=== PATIENT | female | born 1985 | race African-American/Black ===

== ENCOUNTER 2016-07-26 19:03 | Emergency (ER) | payer OTHER ==
[~2016-07-26] VITALS: Ht 162.6 cm; Wt 59.0 kg
[~2016-07-26 19:03] MED LIST: EXJA500T PO; FOLI1 PO; HYDR500 PO; METH10TA PO; METO25 PO; PERC10TA27 PO; RIVA20 PO; ZOFR4TAB3 PO; [UNRECOGNIZED DRUG - CODE] PO
[2016-07-26] MEDS ORDERED: APIX5TAB PO (19:25)
[2016-07-26] MEDS ORDERED: SODIUM CHLOR 0.9% 1000 ML INJ 1,000 ML IV ONE (19:26)
--- NOTE | 2016-07-26 19:29 | PD ---
HPI Chief Complaint: Sickle Cell Time Seen by Provider: 19:20 Travel History International Travel<30 days: No Contact w/Intl Traveler<30days: No Traveled to known affect area: No History of Present Illness HPI This is a 30-year-old female who reports a history of sickle cell anemia, atrial fibrillation on xarelto who presents for evaluation of lower back pain and bilateral thigh pain. Symptoms started last night. This is typical sickle cell pain according to the patient. She has these sorts of sickle cell pain exacerbations about twice a month. It is an aching pain. She typically takes Percocet and methadone at home but symptoms persisted which prompted evaluation. She denies any current illness. She denies any cough, congestion, chest pain or shortness of breath, abdominal pain, nausea or vomiting, fevers or chills, dysuria, flank pain. She does note that 2 weeks ago she was admitted in the hospital in [place] for pneumonia and she was discharged with Levaquin which she finished one week ago. The pneumonia symptoms have been resolved. She reports that she is currently on vacation visiting her aunt who lives in the area, she is from [place] and plans on returning home in 2 days. No other complaints. PFSH Past Medical History Hx Anticoagulant Therapy: Yes (ELIQUIS) Asthma: Yes Atrial Fibrillation: Yes Cardiovascular Problems: Yes (AFIB) Diminished Hearing: No Respiratory: Yes (PE/ASTHMA) Sickle Cell Disease: Yes ?: Not : 1 Para: 1 Tubal Ligation: Yes Past Surgical History Cholecystectomy: Yes Thoracic Surgery: Yes (PORT REMOVED X4, double port placed left chest) Social History Alcohol Use: Yes (OCC) Tobacco Use: No Substance Use: No Allergies-Medications (Allergen,Severity, Reaction): Coded Allergies: Morphine (Verified Allergy, Severe, Hives, 07/26/16) Latex (Verified Allergy, Mild, RASH, 07/26/16) Penicillin (Verified Allergy, Mild, ITCH, 07/26/16) Uncoded Allergies: damian (Allergy, Severe, Rash, 12/09/15) Reported Meds & Prescriptions Reported Meds & Active Scripts Active Zofran ODT (Ondansetron HCl) 4 Mg Tab 4 Mg PO Q6 PRN Reported Eliquis (Apixaban) 5 Mg Tab 5 Mg PO BID Exjade (Deferasirox) 500 Mg Tab 1,500 Mg PO DAILY Metoprolol Tartrate 25 mg (Metoprolol Tartrate) 25 Mg Tab 25 Mg PO BID Methadone HCl (Methadone Hcl) 10 Mg Tab 10 Mg PO BID Percocet 10-325 mg (Oxycodone-Acetaminophen 10-325 mg) 1 Tab 1 Tab PO Q4H PRN Acid Control Maximum Stre (Ranitidine HCl) 150 Mg Tab 150 Mg PO BID Hydrea 500 Mg Cap (Hydroxyurea) 500 Mg Cap 1,500 Mg PO DAILY Folate 1 Mg Tab (Folic Acid) 1 Mg Tab 1 Mg PO DAILY Review of Systems Except as stated in HPI: all other systems reviewed are Neg Physical Exam Narrative GENERAL: Well-developed well-nourished female in no acute distress SKIN: Warm and dry. HEAD: Atraumatic. Normocephalic. EYES: Pupils equal and round. No scleral icterus. No injection or drainage. ENT: No nasal bleeding or discharge. Mucous membranes pink and moist. NECK: Trachea midline. No JVD. CARDIOVASCULAR: Regular rate and rhythm. No murmur appreciated. RESPIRATORY: No accessory muscle use. Clear to auscultation. Breath sounds equal bilaterally. GASTROINTESTINAL: Abdomen soft, non-tender, nondistended. Hepatic and splenic margins not palpable. MUSCULOSKELETAL: No obvious deformities. No edema. No CVA tenderness. NEUROLOGICAL: Awake and alert. No obvious cranial nerve deficits. Motor grossly within normal limits. Normal speech. PSYCHIATRIC: Appropriate mood and affect; insight and judgment normal. Data Data Last Documented VS Vital Signs Date Time Temp Pulse Resp B/P Pulse Ox O2 Delivery O2 Flow Rate FiO2 07/26/16 20:22 98.4 07/26/16 20:20 98 07/26/16 20:10 97 18 133/75 Room Air Orders Basic Metabolic Panel (Bmp) (07/26/16 19:26) Complete Blood Count With Diff (07/26/16 19:26) Retic Count (07/26/16 19:26) Urinalysis - C+S If Indicated (07/26/16 19:26) Ecg Monitoring (07/26/16 19:26) Iv Access Insert/Monitor (07/26/16 19:26) Oximetry (07/26/16 19:26) Ondansetron Inj (Zofran Inj) (07/26/16 19:30) Sodium Chloride 0.9% Flush (Ns Flush) (07/26/16 19:30) Sodium Chlor 0.9% 1000 Ml Inj (Ns 1000 M (07/26/16 19:26) Hydromorphone Pf Inj (Dilaudid Pf Inj) (07/26/16 19:30) Ed Urine Pregnancytest Poc (07/26/16 19:26) Diphenhydramine Inj (Benadryl Inj) (07/26/16 20:45) Labs Laboratory Tests Test 07/26/16 19:55 White Blood Count 11.7 TH/MM3 Red Blood Count 2.75 MIL/MM3 Hemoglobin 7.8 GM/DL Hematocrit 23.3 % Mean Corpuscular Volume 84.8 FL Mean Corpuscular Hemoglobin 28.3 PG Mean Corpuscular Hemoglobin 33.4 % Concent Red Cell Distribution Width 22.3 % Platelet Count 307 TH/MM3 Mean Platelet Volume 8.5 FL Neutrophils (%) (Auto) 39.0 % Lymphocytes (%) (Auto) 32.1 % Monocytes (%) (Auto) 14.4 % Eosinophils (%) (Auto) 13.6 % Basophils (%) (Auto) 0.9 % Neutrophils # (Auto) 4.5 TH/MM3 Lymphocytes # (Auto) 3.7 TH/MM3 Monocytes # (Auto) 1.7 TH/MM3 Eosinophils # (Auto) 1.6 TH/MM3 Basophils # (Auto) 0.1 TH/MM3 CBC Comment AUTO DIFF Reticulocyte Count 8.7 % Absolute Reticulocyte Count 238.6 MIL/L Urine Color YELLOW Urine Turbidity CLEAR Urine pH 6.0 Urine Specific [place] 1.011 Urine Protein NEG mg/dL Urine Glucose (UA) NEG mg/dL Urine Ketones NEG mg/dL Urine Occult Blood MOD Urine Nitrite NEG Urine Bilirubin NEG Urine Urobilinogen 4.0 MG/DL Urine Leukocyte Esterase NEG Urine RBC 38 /hpf Urine WBC LESS THAN 1 /hpf Urine Squamous Epithelial 1 /hpf Cells Microscopic Urinalysis Comment CULT NOT INDICATED Sodium Level 139 MEQ/L Potassium Level 3.5 MEQ/L Chloride Level 103 MEQ/L Carbon Dioxide Level 29.2 MEQ/L Anion Gap 7 MEQ/L Blood Urea Nitrogen 7 MG/DL Creatinine 0.71 MG/DL Estimat Glomerular Filtration 118 ML/MIN Rate Random Glucose 111 MG/DL Calcium Level 8.2 MG/DL [facility] Medical Decision Making Medical Screen Exam Complete: Yes Emergency Medical Condition: Yes Medical Record Reviewed: Yes Differential Diagnosis Sickle cell crisis, compression fracture, radiculopathy Narrative Course The patient's laboratory been reviewed. Her hemoglobin level 7.8 which is stable in comparison to previous levels. Absolute reticulocyte count 238.6. She is being given IV fluids, pain medication. The patient is stable for discharge. She has Percocet and methadone at home. 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 Follow-up with your primary care physician as needed. Return for any emergent medical conditions. Med/Other Pt SpecificInfo: No Change to Meds Disposition: 01 DISCHARGE HOME Condition: Stable Sundar De Oliveira Jul 26, 2016 19:29
[2016-07-26] MEDS ORDERED: ONDANSETRON HCL 4 MG/2 ML VIAL IVP ONE (19:30)
[2016-07-26] MEDS ORDERED: HYDROmorphone HCL PF 1 MG/ML VIAL IVS ONE (19:30)
[2016-07-26] MEDS ORDERED: SODIUM CHLORIDE 0.9% FLUSH 5 ML FLUSH IVF PRN (19:30)
[2016-07-26 20:10] VITALS: BP 133/75; PULSE 97; RESP 18; O2SAT 97
[2016-07-26 20:20] VITALS: O2SAT 98
[2016-07-26 20:22] VITALS: TEMP 98.4
[2016-07-26 20:28] LABS: BLOOD, URINE MOD (NEG); COMMENT (UR) CULT NOT INDICATED; CULTURE IF INDICATED CULT NOT INDICATED; GLUCOSE,URINE NEG (NEG); KETONE, URINE NEG (NEG); NITRITE,URINE NEG (NEG); SQUAMOUS EPITHELIAL CELL URINE 1 /hpf (0-5); URINE COLOR YELLOW (YELLW/STRAW)
[2016-07-26 20:35] LABS: AUTOMATED NEUTROPHIL # 4.5 TH/MM3 (1.8-7.7); BASOPHIL # 0.1 TH/MM3 (0-0.2); BASOPHIL % 0.9 % (0.0-2.0); EOSINOPHIL # 1.6 TH/MM3 (0-0.4); EOSINOPHIL % 13.6 % (0.0-4.0); HEMATOCRIT 23.3 % (35.0-46.0); LYMPH % 32.1 % (9.0-44.0); LYMPHOCYTE # 3.7 TH/MM3 (1.0-4.8); MEAN CELL VOLUME 84.8 FL (80.0-100.0); MEAN CORPUSCULAR HEMOGLOBIN 28.3 PG (27.0-34.0); MEAN CORPUSCULAR HGB CONC 33.4 % (32.0-36.0); MONO % 14.4 % (0.0-8.0); PLATELET COUNT 307 TH/MM3 (150-450); RED BLOOD COUNT 2.75 MIL/MM3 (4.00-5.30); RED CELL DISTRIBUTION WIDTH 22.3 % (11.6-17.2); RETIC % 8.7 % (0.4-3.0); WHITE BLOOD COUNT 11.7 TH/MM3 (4.0-11.0)
[2016-07-26 20:41] LABS: HEMO FLAGS AUTO DIFF; REVIEW FLAG AUTO DIFF
[2016-07-26] MEDS ORDERED: diphenhydrAMINE HCL 50 MG/ML VIAL IV PUSH ONE (20:45)
[2016-07-26 20:46] LABS: BICARBONATE 29.2 MEQ/L (21.0-32.0); POTASSIUM 3.5 MEQ/L (3.5-5.1)
[2016-07-26 21:15] LABS: KERATOCYTES 1+ (NORMAL); SICKLE CELLS 1+ (NORMAL)
[2016-07-26 21:16] LABS: OVALOCYTES 1+ (NORMAL); PLATELET ESTIMATE SMEAR NORMAL (NORMAL); PLATELET MORPHOLOGY NORMAL (NORMAL); SCAN/DIFF AUTO DIFF CONFIRMED
== END 2016-07-27 00:21 | disposition home or self-care (01) ==
LOC: NEPA 19:03
DX: D57.00 Hb-SS disease with crisis, unspecified (principal); I48.91 Unspecified atrial fibrillation; Z88.0 Allergy status to penicillin; Z88.5 Allergy status to narcotic agent; Z79.01 Long term (current) use of anticoagulants
CPT/HCPCS: 80048; 81001; 84703; 85025; 85044; 96374; 96375; 99283; J1170; J1200; J2405; J7030

== ENCOUNTER 2017-02-22 18:03 | Emergency (ER) | payer OTHER ==
[~2017-02-22] VITALS: Ht 162.6 cm; Wt 58.0 kg
[~2017-02-22 18:03] MED LIST changes: +APIX5TAB PO; -RIVA20 PO
[2017-02-22 18:05] VITALS: BP 130/79; PULSE 93; RESP 15; TEMP 98.7; O2SAT 97
[2017-02-22] MEDS ORDERED: SODIUM CHLOR 0.9% 1000 ML INJ 1,000 ML IV ONE (18:39)
[2017-02-22] MEDS ORDERED: HYDROmorphone HCL PF 1 MG/ML VIAL IVS ONE (18:45)
[2017-02-22] MEDS ORDERED: diphenhydrAMINE HCL 50 MG/ML VIAL IV PUSH ONE ×2 (18:45→20:30)
[2017-02-22] MEDS ORDERED: ONDANSETRON HCL 4 MG/2 ML VIAL IV PUSH ONE (18:45)
[2017-02-22] MEDS ORDERED: SODIUM CHLORIDE 0.9% FLUSH 10 ML FLUSH IVF PRN (18:45)
--- NOTE | 2017-02-22 19:04 | PD ---
HPI Chief Complaint: Sickle Cell Time Seen by Provider: 18:14 Travel History International Travel<30 days: No Contact w/Intl Traveler<30days: No Traveled to known affect area: No History of Present Illness HPI 31-year-old female with medical history of sickle cell anemia, atrial fibrillation, PE presents to the emergency department for evaluation of sickle cell crisis. She reports generalized body pain. Patient states this is typical of her sickle cell crisis. She states that she lives in [place], but is here visiting family. She states she normally gets Dilaudid, saline, Zofran , Benadryl for her symptoms. She denies any fevers or chills. No chest pain or shortness of breath. No abdominal pain. No nausea, vomiting, diarrhea. She denies any chance of reporting tubal ligation. No urinary symptoms. Patient does take oxycodone at home for pain. PFSH Past Medical History Hx Anticoagulant Therapy: Yes (LOVENOX) Asthma: Yes Atrial Fibrillation: Yes Cardiovascular Problems: Yes (AFIB) Diminished Hearing: No Respiratory: Yes (PE/ASTHMA) Sickle Cell Disease: Yes ?: Not LMP: 02/11/17 : 1 Para: 1 Tubal Ligation: Yes Past Surgical History Cholecystectomy: Yes Thoracic Surgery: Yes (PORT REMOVED X4, double port placed left chest) Social History Alcohol Use: Yes (OCC) Tobacco Use: No Substance Use: No Allergies-Medications (Allergen,Severity, Reaction): Coded Allergies: morphine (Unverified Allergy, Severe, Hives, 02/22/17) latex (Unverified Allergy, Mild, RASH, 02/22/17) penicillin G (Unverified Allergy, Mild, ITCH, 02/22/17) Uncoded Allergies: damian (Allergy, Severe, Rash, 12/09/15) Reported Meds & Prescriptions Reported Meds & Active Scripts Active Zofran ODT (Ondansetron HCl) 4 Mg Tab 4 Mg PO Q6 PRN Reported Eliquis (Apixaban) 5 Mg Tab 5 Mg PO BID Exjade (Deferasirox) 500 Mg Tab 1,500 Mg PO DAILY Metoprolol Tartrate 25 mg (Metoprolol Tartrate) 25 Mg Tab 25 Mg PO BID Methadone HCl (Methadone Hcl) 10 Mg Tab 10 Mg PO BID Percocet 10-325 mg (Oxycodone-Acetaminophen 10-325 mg) 1 Tab 1 Tab PO Q4H PRN Acid Control Maximum Stre (Ranitidine HCl) 150 Mg Tab 150 Mg PO BID Hydrea 500 Mg Cap (Hydroxyurea) 500 Mg Cap 1,500 Mg PO DAILY Folate 1 Mg Tab (Folic Acid) 1 Mg Tab 1 Mg PO DAILY Review of Systems Except as stated in HPI: all other systems reviewed are Neg Physical Exam Narrative GENERAL: Well-nourished, well-developed female patient, ambulatory. Afebrile. SKIN: Focused skin assessment warm/dry. HEAD: Normocephalic. Atraumatic. EYES: No scleral icterus. No injection or drainage. NECK: Supple, trachea midline. No JVD or lymphadenopathy. CARDIOVASCULAR: Regular rate and rhythm without murmurs, gallops, or rubs. RESPIRATORY: Breath sounds equal bilaterally. No accessory muscle use. Lungs sounds are clear to auscultation. GASTROINTESTINAL: Abdomen soft, non-tender, nondistended. MUSCULOSKELETAL: No cyanosis, or edema. BACK: Nontender without obvious deformity. No CVA tenderness. Data Data Last Documented VS Vital Signs Date Time Temp Pulse Resp B/P (MAP) Pulse Ox O2 Delivery O2 Flow Rate FiO2 02/22/17 19:32 98 Room Air 02/22/17 18:05 98.7 93 15 Orders Orders Basic Metabolic Panel (Bmp) (02/22/17 18:39) Complete Blood Count With Diff (02/22/17 18:39) Retic Count (02/22/17 18:39) Urinalysis - C+S If Indicated (02/22/17 18:39) Ecg Monitoring (02/22/17 18:39) Iv Access Insert/Monitor (02/22/17 18:39) Oximetry (02/22/17 18:39) Sodium Chloride 0.9% Flush (Ns Flush) (02/22/17 18:45) Sodium Chlor 0.9% 1000 Ml Inj (Ns 1000 M (02/22/17 18:39) Hydromorphone Pf Inj (Dilaudid Pf Inj) (02/22/17 18:45) Ed Urine Pregnancytest Poc (02/22/17 18:39) Ondansetron Inj (Zofran Inj) (02/22/17 18:45) Diphenhydramine Inj (Benadryl Inj) (02/22/17 18:45) Hydromorphone Pf Inj (Dilaudid Pf Inj) (02/22/17 20:30) Diphenhydramine Inj (Benadryl Inj) (02/22/17 20:30) Labs Laboratory Tests Test 02/22/17 19:10 02/22/17 19:30 Urine Color YELLOW Urine Turbidity HAZY Urine pH 6.5 Urine Specific [place] 1.014 Urine Protein NEG mg/dL Urine Glucose (UA) NEG mg/dL Urine Ketones NEG mg/dL Urine Occult Blood NEG Urine Nitrite NEG Urine Bilirubin NEG Urine Urobilinogen GREATER THAN 12.0 MG/DL Urine Leukocyte Esterase SMALL Urine RBC LESS THAN 1 /hpf Urine WBC 1 /hpf Urine Squamous Epithelial Cells 2 /hpf Microscopic Urinalysis Comment CULT NOT INDICATED White Blood Count 8.8 TH/MM3 Red Blood Count 2.69 MIL/MM3 Hemoglobin 9.0 GM/DL Hematocrit 26.6 % Mean Corpuscular Volume 98.7 FL Mean Corpuscular Hemoglobin 33.6 PG Mean Corpuscular Hemoglobin Concent 34.0 % Red Cell Distribution Width 24.9 % Platelet Count 233 TH/MM3 Mean Platelet Volume 9.0 FL Neutrophils (%) (Auto) 43.0 % Lymphocytes (%) (Auto) 25.0 % Monocytes (%) (Auto) 14.8 % Eosinophils (%) (Auto) 16.3 % Basophils (%) (Auto) 0.9 % Neutrophils # (Auto) 3.8 TH/MM3 Lymphocytes # (Auto) 2.2 TH/MM3 Monocytes # (Auto) 1.3 TH/MM3 Eosinophils # (Auto) 1.4 TH/MM3 Basophils # (Auto) 0.1 TH/MM3 CBC Comment AUTO DIFF Differential Total Cells Counted 100 Neutrophils % (Manual) 47 % Band Neutrophils % 2 % Lymphocytes % 30 % Monocytes % 7 % Eosinophils % 10 % Neutrophils # (Manual) 4.7 TH/MM3 Metamyelocytes 3 % Myelocytes 1 % Differential Comment FINAL DIFF MANUAL Platelet Estimate NORMAL Platelet Morphology Comment NORMAL Sickle Cells 2+ Target Cells 1+ Reticulocyte Count 11.3 % Absolute Reticulocyte Count 305.0 MIL/L Blood Urea Nitrogen 9 MG/DL Creatinine 0.55 MG/DL Random Glucose 99 MG/DL Calcium Level 9.0 MG/DL Sodium Level 139 MEQ/L Potassium Level 3.9 MEQ/L Chloride Level 104 MEQ/L Carbon Dioxide Level 27.5 MEQ/L Anion Gap 8 MEQ/L Estimat Glomerular Filtration Rate 157 ML/MIN [facility] Medical Decision Making Medical Screen Exam Complete: Yes Emergency Medical Condition: Yes Medical Record Reviewed: Yes Differential Diagnosis Sickle cell crisis versus anemia versus chronic pain Narrative Course 31-year-old female presents to the emergency department for evaluation of possible sickle cell crisis. IV access established. CBC, BMP, reticulocyte count, UA, urine test are ordered and pending. Patient is given normal saline 1 L bolus, Dilaudid 1 mg IV, Zofran 4 mg IV, Benadryl 25 mg IV. CBC shows hemoglobin 9.0, hematocrit 26.6. BMP is unremarkable. Reticulocyte count of 11.3, absolute reticulocyte 305.0. UA is negative for infection. Urine test is negative. Patient is requesting more pain medications. She is given second dose of Dilaudid 1 mg IV, Benadryl 25 mg IV. She is to call for a ride home. She verbalizes agreement. Patient is to follow-up with her all around presser. She is return here for any acute worsening of symptoms. Diagnosis Primary Impression: Sickle cell disease Qualified Codes: D57.00 - Hb-SS disease with crisis, unspecified Patient Instructions: General Instructions, Sickle Cell Crisis (ED) Additional Instructions: Continue pain medications as directed as needed for pain. Follow-up with your all around presser. Return to the emergency department for any acute worsening of symptoms. Med/Other Pt SpecificInfo: No Change to Meds Disposition: 01 DISCHARGE HOME Condition: Stable RafaelRosalie Feb 22, 2017 19:04
[2017-02-22 19:32] VITALS: O2SAT 98
[2017-02-22 19:42] LABS: AUTOMATED NEUTROPHIL # 3.8 TH/MM3 (1.8-7.7); BASOPHIL # 0.1 TH/MM3 (0-0.2); BASOPHIL % 0.9 % (0.0-2.0); EOSINOPHIL # 1.4 TH/MM3 (0-0.4); EOSINOPHIL % 16.3 % (0.0-4.0); HEMATOCRIT 26.6 % (35.0-46.0); LYMPHOCYTE # 2.2 TH/MM3 (1.0-4.8); MEAN CELL VOLUME 98.7 FL (80.0-100.0); MEAN CORPUSCULAR HEMOGLOBIN 33.6 PG (27.0-34.0); MONO % 14.8 % (0.0-8.0); PLATELET COUNT 233 TH/MM3 (150-450); RED BLOOD COUNT 2.69 MIL/MM3 (4.00-5.30); RED CELL DISTRIBUTION WIDTH 24.9 % (11.6-17.2); RETIC % 11.3 % (0.4-3.0); WHITE BLOOD COUNT 8.8 TH/MM3 (4.0-11.0)
[2017-02-22 19:49] LABS: HEMO FLAGS AUTO DIFF; REVIEW FLAG AUTO DIFF
[2017-02-22 19:54] LABS: BLOOD, URINE NEG (NEG); COMMENT (UR) CULT NOT INDICATED; CULTURE IF INDICATED CULT NOT INDICATED; GLUCOSE,URINE NEG (NEG); KETONE, URINE NEG (NEG); NITRITE,URINE NEG (NEG); PH, URINE 6.5 (5.0-8.5); SQUAMOUS EPITHELIAL CELL URINE 2 /hpf (0-5); URINE COLOR YELLOW (YELLW/STRAW)
[2017-02-22 20:13] LABS: BICARBONATE 27.5 MEQ/L (21.0-32.0); POTASSIUM 3.9 MEQ/L (3.5-5.1)
[2017-02-22] MEDS ORDERED: HYDROmorphone HCL PF 1 MG/ML VIAL IV PUSH ONE (20:30)
[2017-02-22 20:31] LABS: BANDS 2 % (0-6); EOSINOPHILS 10 % (0-4); METAMYELOCYTES 3 % (0-1); MYELOCYTES 1 % (0-0); NEUTROPHIL # MANUAL DIFF 4.7 TH/MM3 (1.8-7.7); POLYS (SEG NEUTROPHILS) 47 % (16-70); SCAN/DIFF FINAL DIFF MANUAL; WBC DIFF SAMPLE 100
[2017-02-22 20:32] LABS: PLATELET ESTIMATE SMEAR NORMAL (NORMAL); PLATELET MORPHOLOGY NORMAL (NORMAL); SICKLE CELLS 2+ (NORMAL); TARGET CELLS 1+ (NORMAL)
== END 2017-02-22 21:00 | disposition home or self-care (01) ==
LOC: NEPE 18:03
DX: D57.00 Hb-SS disease with crisis, unspecified (principal); I48.91 Unspecified atrial fibrillation; Z79.01 Long term (current) use of anticoagulants
CPT/HCPCS: 80048; 81001; 84703; 85007; 85027; 85044; 96361; 96374; 96375; 96376; 99284; J1170; J1200; J2405; J7030